=== PATIENT | female | born 1960 | race Caucasian/White ===

== ENCOUNTER 2017-02-06 12:18 | Emergency (ER) | payer MEDICAID, SELFPAY ==
[2017-02-06] MEDS ORDERED: cefTRIAXone\\ROCEPHIN 1 GM VIAL ONE (12:49)
[2017-02-06] MEDS ORDERED: Lidocaine 1% 20 ML MDV ONE (12:49)
== END 2017-02-06 12:55 | disposition home or self-care (01) ==
LOC: MADERS 12:18
DX: H66.93 Otitis media, unspecified, bilateral (principal)
CPT/HCPCS: 96372; J0696; J2001

== ENCOUNTER 2017-09-14 11:38 | Emergency (ER) | payer OTHER ==
[2017-09-14] MEDS ORDERED: predniSONE 20 MG TAB ONE (11:58)
== END 2017-09-14 12:18 | disposition home or self-care (01) ==
LOC: MADERS 11:38
DX: J40 Bronchitis, not specified as acute or chronic (principal); G89.29 Other chronic pain; G54.9 Nerve root and plexus disorder, unspecified; F17.210 Nicotine dependence, cigarettes, uncomplicated
CPT/HCPCS: 94640; J7506; J7620

== ENCOUNTER 2017-09-18 13:30 | Emergency (ER) | payer OTHER ==
[2017-09-18] MEDS ORDERED: predniSONE 20 MG TAB ONE (14:13)
[2017-09-18] MEDS ORDERED: Benzonatate 100 MG CAP ONE (14:52)
--- NOTE | 2017-09-18 14:58 | RAD ---
CHEST ONE VIEW: History: Cough. Comparison: None. FINDINGS: Lungs are clear. No pneumothorax or effusion. Cardiac silhouette and mediastinal contours are within normal limits. IMPRESSION: No acute intrathoracic abnormality. POS: [facility]
== END 2017-09-18 15:42 | disposition home or self-care (01) ==
LOC: MADERS 13:30
DX: S29.011A Strain of muscle and tendon of front wall of thorax, initial encounter (principal); J20.9 Acute bronchitis, unspecified; F17.210 Nicotine dependence, cigarettes, uncomplicated; Z79.899 Other long term (current) drug therapy; X58.XXXA Exposure to other specified factors, initial encounter
CPT/HCPCS: 71045; J7506; J7620

== ENCOUNTER 2017-10-04 15:15 | Emergency (ER) | payer OTHER ==
[2017-10-04 15:41] LABS: Bilirubin Negative (Negative); Blood, Urine Negative (Negative); Clarity Clear (Clear); Glucose, Urine (Dipstick) Negative (Negative); Leukocyte Negative (Negative); Nitrite Negative (Negative); Protein, Urine (Dipstick) Negative (Neg-Trace); Urobilinogen 0.2 mg/dL (0.2-1.0); pH, Urine 7.5 (5.0-9.0)
[2017-10-04 15:52] LABS: Bacteria/HPF Rare-Few HPF (None Seen); RBC/HPF None Seen HPF (0-3); Squamous Epithelial 0-3 HPF (0-3); WBC/HPF None Seen HPF (0-3)
[2017-10-04 15:53] LABS: Amphetamine Not Detected (NotDetected); Barbiturates Screen Not Detected (NotDetected); Benzodiazepine Screen Not Detected (NotDetected); Cocaine Metabolite Screen Not Detected (NotDetected); Medtox Control Line Valid? VALID (VALID); Methadone Not Detected (NotDetected); Methamphetamine Not Detected (NotDetected); Opiate Screen Not Detected (NotDetected); Oxycodone Screen Not Detected (NotDetected); Phencyclidine (PCP) Not Detected (NotDetected); THC/Cannabinoid Screen Detected (NotDetected); Tricyclic Screen Not Detected (NotDetected)
== END 2017-10-04 17:43 | disposition home or self-care (01) ==
LOC: MADERS 15:15
DX: T40.7X1A Poisoning by cannabis (derivatives), accidental (unintentional), initial encounter (principal); J45.909 Unspecified asthma, uncomplicated; F17.210 Nicotine dependence, cigarettes, uncomplicated
CPT/HCPCS: 80306; 81001; 87086; 99283

== ENCOUNTER 2017-10-05 12:52 | Emergency (ER) | payer OTHER ==
--- NOTE | 2017-10-05 13:23 | RAD ---
TWO VIEW CHEST: Indications: Cough. FINDINGS: Lung floyd are clear. Heart and mediastinum are unremarkable. Osseous structures are unremarkable. IMPRESSION: No acute abnormality. POS: [facility]
== END 2017-10-05 13:30 | disposition home or self-care (01) ==
LOC: MADERS 12:52
DX: J20.9 Acute bronchitis, unspecified (principal); G89.29 Other chronic pain; M54.9 Dorsalgia, unspecified; J45.909 Unspecified asthma, uncomplicated; F17.210 Nicotine dependence, cigarettes, uncomplicated; Z79.899 Other long term (current) drug therapy
CPT/HCPCS: 71046

== ENCOUNTER 2018-02-06 11:26 | Emergency (ER) | payer OTHER ==
[2018-02-06 11:57] LABS: Bilirubin Small (Negative); Blood, Urine Negative (Negative); Clarity Hazy (Clear); Glucose, Urine (Dipstick) Negative (Negative); Leukocyte Negative (Negative); Nitrite Negative (Negative); Protein, Urine (Dipstick) 30 mg/dL (Neg-Trace); Urobilinogen 0.2 mg/dL (0.2-1.0)
[2018-02-06 12:04] LABS: Bacteria/HPF Rare-Few HPF (None Seen); RBC/HPF 0-3 HPF (0-3); WBC/HPF 0-3 HPF (0-3)
[2018-02-06 12:05] LABS: Crystals/HPF RARE CA OXALATE HPF (Negative)
[2018-02-06] MEDS ORDERED: Ketorolac Tromethamine 60 MG/2 ML VIAL ONE (12:22)
[2018-02-06] MEDS ORDERED: predniSONE 20 MG TAB ONE (12:22)
== END 2018-02-06 12:41 | disposition home or self-care (01) ==
LOC: MADERS 11:26
DX: G89.29 Other chronic pain (principal); M54.5 Low back pain; J45.909 Unspecified asthma, uncomplicated; F17.210 Nicotine dependence, cigarettes, uncomplicated
CPT/HCPCS: 81003; 81015; J1885; J7506

== ENCOUNTER 2018-04-22 11:25 | Emergency (ER) | payer OTHER | END 2018-04-22 12:16 | disposition home or self-care (01) | LOC: MADERS 11:25 | DX: M54.5 Low back pain (principal); G89.29 Other chronic pain; J45.909 Unspecified asthma, uncomplicated; F17.210 Nicotine dependence, cigarettes, uncomplicated | CPT/HCPCS: 99281 ==

== ENCOUNTER 2018-09-04 08:27 | Outpatient (CLI) | payer OTHER ==
--- NOTE | 2018-09-04 08:50 | RAD ---
EXAM: Lumbar spine 3 views: HISTORY: Degenerative joint disease. Pain. No trauma. COMPARISON: None FINDINGS: Marked narrowing at L4-L5. No evidence for acute fracture or dislocation involving the visualized spine. There are disc osteophytosis and facet arthrosis changes. No evidence for malalignment. No evidence for a bone lesion. IMPRESSION: Spondylosis. No significant acute process.
--- NOTE | 2018-09-04 10:25 | RAD ---
RIGHT HIP 2 VIEWS: History Pain. COMPARISON: None. FINDINGS: There is no acute fracture or malalignment. Obturator ring is intact. SI joint is intact. Sacral s truts are intact as well as the iliac wing. IMPRESSION: No acute abnormality. POS: [facility]
--- NOTE | 2018-09-04 10:42 | RAD ---
LEFT HIP 2 VIEWS: HISTORY: Pain. COMPARISON: None. FINDINGS: Advanced degenerative disk space height loss lower lumbar spine. Left SI joint mildly degenerative a s well as the pubic symphysis. Small acetabular osteophytes are present. There are ring osteophytes of the left femoral head/neck j unction. The obturator ring is intact. IMPRESSION: No acute osseous abnormality. Advanced degenerative changes of the lower lumbar spine as well as mil d degenerative change of the left hip. POS: [facility]
== END 2018-09-04 08:28 | disposition home or self-care (01) ==
LOC: MADRAD 08:27
PROVIDERS: ATTEND Family Medicine
DX: M51.36 Other intervertebral disc degeneration, lumbar region (principal); M25.551 Pain in right hip; M16.12 Unilateral primary osteoarthritis, left hip; M47.816 Spondylosis without myelopathy or radiculopathy, lumbar region
CPT/HCPCS: 72100

== ENCOUNTER 2018-09-17 17:14 | Emergency (ER) | payer OTHER ==
[2018-09-17] MEDS ORDERED: Tetracaine 0.5% OPHTH SOLN/PF 4 ML BOT ONE (18:20)
== END 2018-09-17 19:00 | disposition home or self-care (01) ==
LOC: MADERS 17:14
DX: S05.01XA Injury of conjunctiva and corneal abrasion without foreign body, right eye, initial encounter (principal); J45.909 Unspecified asthma, uncomplicated; F17.210 Nicotine dependence, cigarettes, uncomplicated; X58.XXXA Exposure to other specified factors, initial encounter
CPT/HCPCS: 99282

== ENCOUNTER 2019-06-04 12:39 | Emergency (ER) | payer OTHER | END 2019-06-04 13:20 | disposition home or self-care (01) | LOC: MADERS 12:39 | DX: L03.116 Cellulitis of left lower limb (principal); J45.909 Unspecified asthma, uncomplicated; F17.210 Nicotine dependence, cigarettes, uncomplicated | CPT/HCPCS: 99283 ==

== ENCOUNTER 2019-06-12 14:23 | Emergency (ER) | payer OTHER ==
[2019-06-12 15:59] LABS: #Basophils 0.2 thou/uL (0.0-0.2); #Eosinphils 0.9 thou/uL (0.0-0.7); #Lymphocytes 3.2 thou/uL (1.20-3.40); #Monocytes 0.4 thou/uL (0.11-0.59); #Neutrophils 3.6 thou/uL (1.40-6.50); %Basophils 1.8 % (0.0-1.0); %Eosinophils 10.6 % (0.0-10.0); %Monocytes 4.8 % (0.0-10.0); %Neutrophils 43.7 % (42.0-75.0); Hemoglobin 13.8 g/dL (12.0-16.0); Mean Corpuscular HGB CONC 31.4 g/dL (32.0-36.0); Mean Corpuscular Volume 92.5 fL (78.0-98.0); Mean Platelet Volume 7.1 fL (7.4-10.4); Platelet Count 315 thou/uL (130-400); RBC Distribution Width 12.4 % (11.5-14.5); Red Blood Cell (RBC) Count 4.76 mill/uL (4.20-5.40); White Blood Cell (WBC) Count 8.3 thou/uL (4.8-10.8)
[2019-06-12 16:14] LABS: ALT (SGPT) 15 U/L (8-55); AST (SGOT) 20 U/L (5-34); Albumin 4.6 g/dL (3.5-5.0); Alkaline Phosphatase 65 U/L (40-110); Anion Gap 15 mmol/L (10-20); BUN (Urea Nitrogen) 23 mg/dL (9.8-20.1); Bilirubin, Total 0.2 mg/dL (0.2-1.2); Calc. Creatinine Clearance 0 mL/min (70-130); Calcium 9.5 mg/dL (7.8-10.44); Carbon Dioxide 25 mmol/L (22-29); Chloride 104 mmol/L (98-107); Estimated GFR-MDRD 71; Globulin 2.8 g/dL (2.4-3.5); Glucose 96 mg/dL (70-105); Lipase 24 U/L (8-78); Protein, Total 7.4 g/dL (6.0-8.3); Sodium 140 mmol/L (136-145)
== END 2019-06-12 16:45 | disposition left against medical advice (07) ==
LOC: MADERS 14:23
DX: R10.10 Upper abdominal pain, unspecified (principal); J45.909 Unspecified asthma, uncomplicated; F17.210 Nicotine dependence, cigarettes, uncomplicated
CPT/HCPCS: 80053; 83605; 83690; 85025; 93005

== ENCOUNTER 2020-04-25 09:23 | Emergency (ER) | payer OTHER ==
[2020-04-25] MEDS ORDERED: Ketorolac Tromethamine 30 MG/ML VIAL ONE (10:00)
== END 2020-04-25 10:19 | disposition home or self-care (01) ==
LOC: MADERS 09:23
DX: J01.10 Acute frontal sinusitis, unspecified (principal); H92.01 Otalgia, right ear; J45.909 Unspecified asthma, uncomplicated; F17.210 Nicotine dependence, cigarettes, uncomplicated
CPT/HCPCS: 96372; 99283; J1885

== ENCOUNTER 2020-05-01 08:50 | Emergency (ER) | payer OTHER ==
[2020-05-01] MEDS ORDERED: Ketorolac Tromethamine 30 MG/ML VIAL ONE (09:31)
== END 2020-05-01 09:45 | disposition home or self-care (01) ==
LOC: MADERS 08:50
DX: H81.391 Other peripheral vertigo, right ear (principal); H60.91 Unspecified otitis externa, right ear; J44.9 Chronic obstructive pulmonary disease, unspecified; F17.210 Nicotine dependence, cigarettes, uncomplicated
CPT/HCPCS: J1885

== ENCOUNTER 2020-07-20 06:40 | Emergency (ER) | payer OTHER ==
[2020-07-20] MEDS ORDERED: Magnesium 2 GM/50 ML BAG (IN WATER) ONE (07:08)
[2020-07-20] MEDS ORDERED: methylPREDNISolone Sod Succ/PF 125 MG/2 ML VIAL ONE (07:08)
[2020-07-20 07:57] LABS: #Basophils 0.1 thou/uL (0.0-0.2); #Eosinphils 0.1 thou/uL (0.0-0.7); #Monocytes 0.7 thou/uL (0.11-0.59); #Neutrophils 3.7 thou/uL (1.40-6.50); %Basophils 1.1 % (0.0-1.0); %Eosinophils 1.7 % (0.0-10.0); %Monocytes 8.7 % (0.0-10.0); %Neutrophils 49.5 % (42.0-75.0); Hemoglobin 15.5 g/dL (12.0-16.0); Mean Corpuscular HGB CONC 32.1 g/dL (32.0-36.0); Mean Corpuscular Hemoglobin 29.6 pg (27.0-31.0); Mean Corpuscular Volume 92.1 fL (78.0-98.0); Mean Platelet Volume 8.7 fL (7.4-10.4); Platelet Count 316 thou/uL (130-400); RBC Distribution Width 12.5 % (11.5-14.5); Red Blood Cell (RBC) Count 5.23 mill/uL (4.20-5.40); White Blood Cell (WBC) Count 7.6 thou/uL (4.8-10.8)
[2020-07-20 08:10] LABS: ALT (SGPT) 17 U/L (8-55); AST (SGOT) 19 U/L (5-34); Albumin 4.5 g/dL (3.5-5.0); Alkaline Phosphatase 79 U/L (40-110); Anion Gap 17 mmol/L (10-20); BUN (Urea Nitrogen) 14 mg/dL (9.8-20.1); Bilirubin, Total 0.5 mg/dL (0.2-1.2); CK (CPK) 83 U/L (29-168); Calc. Creatinine Clearance 0 mL/min (70-130); Calcium 9.7 mg/dL (7.8-10.44); Carbon Dioxide 24 mmol/L (22-29); Chloride 104 mmol/L (98-107); Globulin 3.4 g/dL (2.4-3.5); Glucose 136 mg/dL (70-105); Potassium 3.7 mmol/L (3.5-5.1); Protein, Total 7.9 g/dL (6.0-8.3); Sodium 141 mmol/L (136-145)
[2020-07-20 08:21] LABS: Bilirubin Small (Negative); Blood, Urine Negative (Negative); Clarity Clear (Clear); Glucose, Urine (Dipstick) Negative (Negative); Ketone, Urine Trace mg/dL (Negative); Leukocyte Negative (Negative); Nitrite Negative (Negative); Protein, Urine (Dipstick) > or equal to 300 mg/dL (Neg-Trace); Urobilinogen 0.2 mg/dL (Less than 2); pH, Urine 5.5 (5.0-9.0)
[2020-07-20 08:23] LABS: Specific Gravity, Urine 1.032 (1.002-1.036)
[2020-07-20 08:27] LABS: Bacteria/HPF Rare-Few HPF (None Seen); RBC/HPF 0-3 HPF (0-3); Squamous Epithelial 0-3 HPF (0-3); WBC/HPF 0-3 HPF (0-3)
[2020-07-20] MEDS ORDERED: Ketorolac Tromethamine 30 MG/ML VIAL ONE (08:28)
== END 2020-07-20 08:35 | disposition home or self-care (01) ==
LOC: MADERS 06:40
DX: J44.1 Chronic obstructive pulmonary disease with (acute) exacerbation (principal); F17.210 Nicotine dependence, cigarettes, uncomplicated; Z79.899 Other long term (current) drug therapy
CPT/HCPCS: 71045; 80053; 81003; 81015; 82550; 83605; 84484; 85025; 87040; 87086; 93005; 94640; 96365; 96375; J1885; J2930; J3475; J7620

== ENCOUNTER 2022-11-01 11:19 | Emergency (ER) | payer OTHER ==
[~2022-11-01 11:19] MED LIST: Iopamidol 370 76% 100 ML VIAL ONE
[2022-11-01 11:50] LABS: Bilirubin Negative (Negative); Blood, Urine Negative (Negative); Clarity Hazy (Clear); Glucose, Urine (Dipstick) Negative (Negative); Ketone, Urine Negative (Negative); Leukocyte Trace (Negative); Nitrite Negative (Negative); Protein, Urine (Dipstick) Negative (Neg-Trace); Urobilinogen 0.2 mg/dL (Less than 2); pH, Urine 6.5 (5.0-9.0)
[2022-11-01 11:51] LABS: Specific Gravity, Urine 1.007 (1.002-1.036)
[2022-11-01 11:52] LABS: Bacteria/HPF 1+ HPF (None Seen); CAUTI Indications for Culture Dysuria,urgency,freq; Cocaine Metabolite Screen Not Detected (NotDetected); Methamphetamine Not Detected (NotDetected); Opiate Screen Not Detected (NotDetected); Phencyclidine (PCP) Not Detected (NotDetected); RBC/HPF None Seen HPF (0-3); Squamous Epithelial 0-3 HPF (0-3); THC/Cannabinoid Screen Not Detected (NotDetected); WBC/HPF 0-3 HPF (0-3)
[2022-11-01 11:53] LABS: Amphetamine Not Detected (NotDetected); Barbiturates Screen Not Detected (NotDetected); Benzodiazepine Screen Detected (NotDetected); Methadone Not Detected (NotDetected); Oxycodone Screen Not Detected (NotDetected); Tricyclic Screen Not Detected (NotDetected); Urine Culture Reflex No No
[2022-11-01 12:36] LABS: #Basophils 0.1 thou/uL (0.0-0.2); #Lymphocytes 1.3 thou/uL (1.20-3.40); #Monocytes 0.1 thou/uL (0.11-0.59); #Neutrophils 8.2 thou/uL (1.40-6.50); %Basophils 0.5 % (0.0-1.0); %Eosinophils 0.2 % (0.0-10.0); %Monocytes 1.2 % (0.0-10.0); %Neutrophils 85.1 % (42.0-75.0); Hemoglobin 14.2 g/dL (12.0-16.0); Mean Corpuscular HGB CONC 33.4 g/dL (32.0-36.0); Mean Corpuscular Hemoglobin 30.5 pg (27.0-31.0); Mean Corpuscular Volume 91.5 fl (78.0-98.0); Mean Platelet Volume 9.1 fL (7.4-10.4); Platelet Count 343 10x3/uL (130-400); Red Blood Cell (RBC) Count 4.66 mill/uL (4.20-5.40); White Blood Cell (WBC) Count 9.6 10x3/uL (4.8-10.8)
[2022-11-01 13:02] LABS: ALT (SGPT) 15 U/L (8-55); AST (SGOT) 16 U/L (5-34); Albumin 4.4 g/dL (3.4-4.8); Alkaline Phosphatase 60 U/L (40-110); Anion Gap 14 mmol/L (10-20); BUN (Urea Nitrogen) 13 mg/dL (9.8-20.1); Bilirubin, Total 0.3 mg/dL (0.2-1.2); Calc. Creatinine Clearance 0 mL/min (70-130); Calcium 9.9 mg/dL (7.8-10.44); Carbon Dioxide 24 mmol/L (23-31); Chloride 102 mmol/L (98-107); Estimated GFR 76; Globulin 2.8 g/dL (2.4-3.5); Glucose 120 mg/dL (80-115); Potassium 4.2 mmol/L (3.5-5.1); Protein, Total 7.2 g/dL (5.8-8.1); Sodium 136 mmol/L (136-145)
== END 2022-11-01 14:03 | disposition home or self-care (01) ==
LOC: MADERS 11:19
DX: K59.00 Constipation, unspecified (principal); R63.4 Abnormal weight loss; N83.201 Unspecified ovarian cyst, right side; I10 Essential (primary) hypertension; E78.5 Hyperlipidemia, unspecified; F17.210 Nicotine dependence, cigarettes, uncomplicated; Z79.899 Other long term (current) drug therapy
CPT/HCPCS: 74177; 80053; 80306; 81001; 85025; Q9967